=== PATIENT | male | born 1955 | race Caucasian/White ===

== ENCOUNTER 2018-01-15 16:31 | Emergency (ER) | payer OTHER ==
[~2018-01-15] VITALS: Ht 172.7 cm; Wt 70.3 kg
[2018-01-15] MEDS ORDERED: SODIUM CHLORIDE 0.9% 1,000 ML IVB ONE (16:51)
[2018-01-15 18:02] VITALS: BP 146/81
[2018-01-15 19:10] LABS: Amphetamine Screen, Urine NEGATIVE (NEGATIVE); Barbiturate Scree,Urine NEGATIVE (NEGATIVE); Benzodiazephine Screen, Urine POSITIVE (NEGATIVE); Cannabinoid Screen, Urine NEGATIVE (NEGATIVE); Cocaine Screen, Urine NEGATIVE (NEGATIVE); Opiate Scree,Urine NEGATIVE (NEGATIVE); Phencyclidine Screen, Urine NEGATIVE (NEGATIVE)
== END 2018-01-15 20:04 | disposition home or self-care (01) ==
LOC: ER 16:31 → EDBD 16:31 → ER 20:04
DX: F10.10 Alcohol abuse, uncomplicated (principal); M54.9 Dorsalgia, unspecified; G89.29 Other chronic pain
CPT/HCPCS: 36415; 80307; 80320; 94761; 99285; J7030

== ENCOUNTER 2023-11-03 04:06 | Emergency (ER) | payer OTHER, MEDICAID ==
[~2023-11-03] VITALS: Ht 160 cm; Wt 70.0 kg
[2023-11-03 04:58] LABS: Basophils # (auto) 0.1 10 ^3/uL (0-0.2); Basophils % (auto) 0.6 % (0.0-2.0); Eosinophils # (auto) 0 10 ^3/uL (0-0.8); Eosinophils % (auto) 0.3 % (0.0-7.0); Lymphocytes # (auto) 0.9 10 ^3/uL (0.4-5.4); Lymphocytes % (auto) 9.3 % (10.0-50.0); Mean Corpuscular Hemoglobin 30.7 pg (28.0-32.0); Mean Corpuscular Hgb Conc. 33.3 g/dL (32.0-36.0); Monocytes # (auto) 0.6 10 ^3/uL (0-1.3); Monocytes % (auto) 6.1 % (0.0-12.0); Neutrophils # (auto) 8.1 10 ^3/uL (1.6-8.6); Neutrophils % (auto) 83.7 % (37.0-80.0); Red Blood Cells 3.91 10^6/uL (4.5-5.90); Red Cell Distribution Width 13.9 % (11.8-14.3); White Blood Cell 9.6 10^3/uL (4.4-10.8)
[2023-11-03 05:17] LABS: Alanine Aminotransferase 15 U/L (7-40); Albumin 3.6 g/dL (3.2-4.8); Alkaline Phosphatase 88 U/L (46-116); Anion Gap 7 (5-15); Aspartate Aminotransferase 21 U/L (13-40); BUN/Creatinine Ratio 12.9 (10.0-20.0); Blood Urea Nitrogen 9 mg/dL (9-23); Calcium 8.5 mg/dL (8.7-10.4); Carbon Dioxide 23 mmol/L (20-30); Chloride 111 mmol/L (98-107); Glucose 101 mg/dL (74-106); Magnesium 1.7 mg/dL (1.6-2.6); Potassium 3.7 mmol/L (3.5-5.1); Sodium 141 mmol/L (136-145)
[2023-11-03 05:18] LABS: Bilirubin, Total 0.3 mg/dL (0.2-1.0); Salicylate < 3.0 mg/dL (2.8-20.0); Total Protein 5.6 g/dL (5.7-8.2)
[2023-11-03 06:20] LABS: Blood Alcohol < 3.0 mg/dL (<10)
[2023-11-03] MEDS: NEOMYCIN-BACITRACIN-POLYM UNITDOSE PKG TOP OINT TOP ONE (06:37)
[2023-11-03] MEDS: LIDOCAINE 1% (LOCAL ANESTH.) PF 5ml SDV ID ONE (06:37)
[2023-11-03] MEDS: LIDOCAINE W/ EPINEPHRINE 1% 20ML VIAL ONE (06:38)
[2023-11-03] MEDS: LIDOCAINE W/ EPINEPHRINE 1% 20ML VIAL ID ONE (06:46)
[2023-11-03] MEDS: TETANUS-DIPTH-ACEL PERTUSSIS 0.5ML SYR Tdap IM ONE (06:51)
[2023-11-03 07:33] VITALS: PULSE 78; RESP 13; O2SAT 97
[2023-11-03 09:24] LABS: Urine Bacteria None Seen /hpf (None Seen); Urine WBC None Seen /hpf (0 - 3)
[2023-11-03 10:09] LABS: Amphetamine Screen, Urine Neg (NEGATIVE); Barbiturate Scree,Urine Neg (NEGATIVE); Benzodiazephine Screen, Urine Neg (NEGATIVE); Cannabinoid Screen, Urine Neg (NEGATIVE); Cocaine Screen, Urine Neg (NEGATIVE); Opiate Scree,Urine Pos (NEGATIVE); Phencyclidine Screen, Urine Neg (NEGATIVE)
[2023-11-03 10:56] LABS: Urine Blood Negative /uL (Negative); Urine Clarity Clear (Clear); Urine Color Yellow (Yellow); Urine Mucus FEW (None Seen); Urine Protein, UAD TRACE (Negative); Urine Specific Gravity 1.023 (1.001-1.035); Urine Urobilinogen Normal (Negative)
[2023-11-03] MEDS: busPIRone HCL 10 MG TAB PO SCH (14:02)
[2023-11-03] MEDS: ACETAMINOPHEN/CODEINE#3 (300/30mg) TAB PO ONE (16:07)
[2023-11-03] MEDS: MIRTAZAPINE 30 MG TAB PO SCH (21:33)
[2023-11-04] MEDS: TEMAZEPAM 15 MG CAP PO ONE (00:11)
[2023-11-04] MEDS: ACETAMINOPHEN/CODEINE#3 (300/30mg) TAB PO ONE ×4 (00:11→17:54)
[2023-11-04 01:01] VITALS: PULSE 72; RESP 16; O2SAT 96
[2023-11-04 07:40] VITALS: RESP 16
[2023-11-05 09:39] VITALS: PULSE 89; RESP 14; O2SAT 98
[2023-11-05] MEDS: ACETAMINOPHEN/CODEINE#3 (300/30mg) TAB PO ONE (18:24)
[2023-11-05] MEDS: ACETAMINOPHEN 325 MG TAB PO ONE (20:40)
[2023-11-06] MEDS ORDERED: HYDROcodone-ACET 10/325MG TAB PO ONE (10:15)
[2023-11-06 16:13] VITALS: BP 119/81; PULSE 86; RESP 20; TEMP 98.7; O2SAT 97
== END 2023-11-06 16:26 ==
LOC: EDBD 04:06 → ER 04:06
DX: S41.112A Laceration without foreign body of left upper arm, initial encounter (principal); M24.411 Recurrent dislocation, right shoulder; F17.210 Nicotine dependence, cigarettes, uncomplicated; X78.9XXA Intentional self-harm by unspecified sharp object, initial encounter; Y93.89 Activity, other specified; Y92.89 Other specified places as the place of occurrence of the external cause; Y99.8 Other external cause status
CPT/HCPCS: 12002; 36415; 71045; 73030; 73090; 80053; 80307; 80320; 80329; 81001; 83735; 85025; 90471; 90715